=== PATIENT | female | born 1990 | race African-American/Black ===

== ENCOUNTER 2016-05-20 23:55 | Emergency (ER) | payer SELFPAY ==
[~2016-05-20] VITALS: Ht 175.3 cm; Wt 58.5 kg
[2016-05-20 23:59] VITALS: BP 142/105
[2016-05-21] MEDS ORDERED: HYDROCODONE/APAP 5/325MG 1 EACH TABLET ONE (00:14)
[2016-05-21] MEDS ORDERED: HYDROCODONE/APAP 5/325MG 1 EACH TABLET PO ONE (00:30)
[2016-05-21] MEDS ORDERED: ONDANSETRON 4 MG TAB.RAPDIS ONE (01:45)
[2016-05-21] MEDS ORDERED: ONDANSETRON 4 MG TAB.RAPDIS SL ONE (02:00)
== END 2016-05-21 02:38 | disposition home or self-care (01) ==
LOC: ER 23:57
DX: S70.01XA Contusion of right hip, initial encounter (principal); S60.221A Contusion of right hand, initial encounter; V49.40XA Driver injured in collision with unspecified motor vehicles in traffic accident, initial encounter; Y93.89 Activity, other specified; Y92.488 Other paved roadways as the place of occurrence of the external cause; Y99.9 Unspecified external cause status
CPT/HCPCS: 73130; 73502; 99284; A4606; Q0162; Z7610; 73510-TC